=== PATIENT | female | born 1970 | race Caucasian/White ===

== ENCOUNTER 2021-07-31 23:57 | Emergency (ER) | payer OTHER | END 2021-08-01 02:10 | disposition left against medical advice (07) | LOC: FER 23:57 | DX: S01.01XA Laceration without foreign body of scalp, initial encounter (principal); Z53.29 Procedure and treatment not carried out because of patient's decision for other reasons; Z88.1 Allergy status to other antibiotic agents; W01.0XXA Fall on same level from slipping, tripping and stumbling without subsequent striking against object, initial encounter | CPT/HCPCS: 70450 ==